=== PATIENT | male | born 1985 | race African-American/Black ===

== ENCOUNTER 2017-01-02 03:36 | Emergency (ER) | payer MEDICAID ==
[~2017-01-02] VITALS: Ht 185.4 cm; Wt 108.9 kg
--- NOTE | 2017-01-02 03:49 | NUR ---
PT BIB RA WITH A C/O SI WITH A PLAN TO JUMP INTO TRAFFIC. PT AMBULATED TO BED #9 WITH A STEADY GAIT. PT IS UNABLE TO GIVE A URINE SAMPLE AT THIS TIME.
[2017-01-02 04:12] LABS: BASOPHILS % (AUTO) 0.2 % (0.0-2.0); HEMATOCRIT 40 % (39-51); HEMOGLOBIN 12.7 g/dL (13.5-17.5); LYMPHOCYTES # (AUTO) 0.9 /CMM (0.8-4.8); LYMPHOCYTES % (AUTO) 24.5 % (20.0-44.0); MEAN CORPUSCULAR HEMOGLOBIN 28 PG (26.0-33.0); MEAN CORPUSCULAR HGB CONC 32 g/dl (31.0-36.0); MEAN CORPUSCULAR VOLUME 86 fL (80-96); MONOCYTES # (AUTO) 0.6 /CMM (0.1-1.30); MONOCYTES % (AUTO) 16.7 % (2.0-12.0); NEUTROPHILS # (AUTO) 2.1 /CMM (1.8-8.9); NEUTROPHILS % (AUTO) 57.6 % (43.0-81.0); PLATELET COUNT (AUTO) 149 /CMM (150-450); RDW COEFFICIENT OF VARIATION 13.9 (11.5-15.0); RED BLOOD CELL COUNT(AUTO) 4.61 MIL/uL (4.5-6.0); WHITE BLOOD COUNT (AUTO) 3.7 K/uL (4.3-11.0)
--- NOTE | 2017-01-02 04:15 | NUR ---
PT APPEARS TO BE SLEEPING COMFORTABLY, BUT IS EASILY AROUSED. PT STATED THAT HE COULD NOT GIVE A URINE SAMPLE. PT REQUESTED WATER. PT REC'D 800 ML WATER AND IS TOLERATING PO WELL.
[2017-01-02 04:34] LABS: ALANINE AMINOTRANSFERASE 26 U/L (12-78); ALBUMIN 3.4 g/dL (3.4-5.0); ALKALINE PHOSPHATASE 70 U/L (46-116); ASPARTATE AMINOTRANSFERASE 25 U/L (15-37); BILIRUBIN,DIRECT 0.1 mg/dL (0.0-0.2); BILIRUBIN,TOTAL 0.5 mg/dL (0.2-1.0); CALCIUM, SERUM 9.5 mg/dL (8.5-10.1); CARBON DIOXIDE 30 mmol/L (21-32); CHLORIDE 104 mmol/L (98-107); CREATININE 0.9 mg/dL (0.6-1.3); GLUCOSE 81 mg/dL (74-106); SODIUM SERUM 140 mmol/L (136-145); TOTAL PROTEIN, SERUM 7.4 g/dL (6.4-8.2); UREA NITROGEN, BLOOD 13 mg/dL (7-18)
[2017-01-02 04:45] LABS: SALICYLATE 1.6 mg/dL (2.8-20.0)
[2017-01-02 04:46] LABS: ACETAMINOPHEN 0 ug/ml (10-30); ALCOHOL, BLOOD < 3 mg/dL (0-0)
--- NOTE | 2017-01-02 05:17 | NUR ---
URINE SAMPLE OBTAINED AND SENT TO LAB.
[2017-01-02 05:28] LABS: APPEARANCE,URINE CLEAR (CLEAR); BILIRUBIN,URINE NEGATIVE (NEGATIVE); BLOOD, URINE NEGATIVE Ery/uL (NEGATIVE); COLOR,URINE YELLOW (YELLOW); KETONES,URINE TRACE (NEGATIVE); LEUKOCYTE ESTERASE ,URINE NEGATIVE (NEGATIVE); NITRITE, URINE NEGATIVE (NEGATIVE); PROTEIN,URINE NEGATIVE (NEGATIVE); UGLUCOSE NEGATIVE (NEGATIVE); UROBILINOGEN,URINE 0.2 EU/dL (0.2)
[2017-01-02 05:43] LABS: BACTERIA,URINE None seen /HPF (None Seen); MUCUS,URINE Few /LPF (None Seen); RBC,URINE 0-2 /HPF (0-2); SQUAMOUS EPITHELIAL CELL,UR Moderate /HPF (None Seen)
[2017-01-02 06:06] LABS: EOSINOPHILS % (MANUAL) 2 % (0-4); LYMPHOCYTES % (MANUAL) 28 % (16-48); MONOCYTES % (MANUAL) 12 % (0-11.0); NEUTROPHILS % (MANUAL) 58 (42-76)
--- NOTE | 2017-01-02 06:45 | NUR ---
PT APPEARS TO BE SLEEPING SOUNDLY WITH NO S/S OF PAIN OR DISTRESS.
--- NOTE | 2017-01-02 07:15 | NUR ---
REPORT GIVEN TO PATRICK DYER FOR JULIA.
[2017-01-02 07:30] VITALS: BP 118/71
--- NOTE | 2017-01-02 07:30 | NUR ---
Patient is resting comfortably in bed with eyes closed. Easily aroused. VSS
--- NOTE | 2017-01-02 08:00 | NUR ---
HEATH MOSHERW CALLED FOR EVAL
--- NOTE | 2017-01-02 09:38 | NUR ---
PINKY AT BEDSIDE FOR EVAL
--- NOTE | 2017-01-02 10:28 | NUR ---
call from izabela last, accepted by delio [email or web address] to [phone]
--- NOTE | 2017-01-02 10:31 | NUR ---
[facility] CALLED FOR TX, ETA 30-45 MINUTES PER KEEGAN
--- NOTE | 2017-01-02 10:39 | NUR ---
REPORT GIVEN TO LULÚ NGUYEN FOR JULIA
--- NOTE | 2017-01-02 11:14 | NUR ---
Patient transferred to [facility] in stable condition. Written and verbal after care instructions given. Patient verbalizes understanding of instruction.
== END 2017-01-02 11:16 ==
LOC: ER 03:37
DX: R45.851 Suicidal ideations (principal); I10 Essential (primary) hypertension; F25.9 Schizoaffective disorder, unspecified; F31.9 Bipolar disorder, unspecified; Z88.8 Allergy status to other drugs, medicaments and biological substances
CPT/HCPCS: 36415; 80048; 80076; 80305; 80329; 81001; 85025; 99285; A4606; G0480 ×2; Z7610; 81000-TC